=== PATIENT | female | born 1965 | race Caucasian/White ===

== ENCOUNTER 2019-03-18 16:40 | Inpatient (IN) ==
--- NOTE | 2019-03-18 17:31 | EKG Report ---
Test Performed on : 03/18/2019 5:01:02 PM Test Reason : TACHYCARDIA Blood Pressure : / mmHG Vent. Rate : 133 BPM Atrial Rate : 133 BPM P-R Int : 130 ms QRS Dur : 146 ms QT Int : 342 ms P-R-T Axes : 041 -03 114 degrees QTc Int : 509 ms Sinus tachycardia. Left bundle branch block Abnormal ECG When compared with ECG of 19-APR-2011 10:40, Vent. rate has increased BY 59 BPM Left bundle branch block is now present Unconfirmed Result
--- NOTE | 2019-03-18 17:42 | PROVIDER DOCUMENTATION ---
HPI-Musculoskeletal Pain/Inj - GENERAL Chief Complaint: Extremity Pain Stated Complaint: LOW SODIUM Time Seen by Provider: 03/18/19 17:16 Source: patient, family () - HX OF PRESENT ILLNESS-MUSKULOSKELTAL Nature of Presenting Problem: Patient with h/o generalized pain, hypoNA, reports b/l leg swelling and pain for several months now. She takes med for generalized body pain but brought her in today because he noticed she was confused when he came home today and this has happened in the past when she had hypoNA. She reports no other symptoms. ER EKG reveals sinus tarchycardia with left BBB. states she had been admitted in a different facility in the past Quality of Pain: reports: throbbing Severity in ED: mild, moderate Onset/Duration: other (months) Timing: still present Modifying Factors: improves with: nothing Any recent injury?: No Locality of Occurance: Home Review of Systems - Adult - REVIEW OF SYSTEMS - ADULT Constitutional: reports: no symptoms reported Eyes: reports: no symptoms reported Ears, Nose, Mouth & Throat: reports: no symptoms reported Cardiovascular: reports: no symptoms reported Respiratory: reports: no symptoms reported Gastrointestinal: reports: no symptoms reported Genitourinary: reports: no symptoms reported Musculoskeletal: reports: see HPI Integumentary: reports: no symptoms reported Neurological: reports: other (confused per ) Psychiatric: reports: no symptoms reported Endocrine: reports: no symptoms reported Hematologic/Lymphatic: reports: no symptoms reported Allergic/Immunologic: reports: no symptoms reported Past History - Adult - PAST MEDICAL HISTORY-ADULT Review of Records: reports: Nursing Assessment Review, Medications Reviewed, Social history reviewed & non-contributory. Major Childhood Illnesses: reports: denies history Cardiovascular: reports: denies history Respiratory: reports: denies history Gastrointestinal: reports: GERD, GI bleed Obstetrical/Gynecological: reports: denies history Genitourinary: reports: denies history Musculoskeletal: reports: denies history Neurological: reports: denies history Endocrine/Immune: reports: denies history Other Conditions: reports: denies history - IMMUNIZATION STATUS Childhood Immunizations: See Nurse Assessment Flu Vaccine: See Nurse Assessment - FAMILY HISTORY Family History: reviewed, not pertinent - SOCIAL HISTORY Smoking: denies Substance Use: none/never Alcohol Use Frequency: occasionally Living Situation: family Physical Exam-Injury Related - Physical Exam-Injury Related General Appearance: appears well, alert, no apparent distress Head, Ears, Nose, Mouth & Throat: normocephalic/atraumatic Neck: non-tender, full range of motion, supple Respiratory: chest non-tender, lungs clear, normal breath sounds Cardiovascular: tachycardia Abdominal Exam: non tender, soft Back Exam: no CVA tenderness Extremity: pedal edema (pitting edema b/l legs R > L with tenderness. no colour change, no warmth, no erythema), swelling Integumentary: normal color Neurologic: grossly normal Psych/Mental Status: oriented x 3 - Glascow Coma Score Best Eye Response (Robertson): (4) open spontaneously Best Verbal Response (Cindy): (5) oriented Best Motor Response (Cindy): (6) obeys commands Progress - PLAN OF CARE/RESULTS Progress/Plan/Lab Results: Vital Signs - 8 hr 03/18/19 16:58 03/18/19 17:58 03/18/19 18:01 Temperature 97.9 F Pulse Rate 131 H 132 H 131 H Respiratory Rate 18 14 18 Blood Pressure 155/92 154/92 137/99 O2 Sat by Pulse Oximetry 98 100 98 03/18/19 19:01 03/18/19 20:01 03/18/19 21:01 Temperature Pulse Rate 122 H 130 H 121 H Respiratory Rate 22 19 18 Blood Pressure 135/74 148/83 136/71 O2 Sat by Pulse Oximetry 97 97 97 Laboratory Results - last 24 hr 03/18/19 03/18/19 03/18/19 17:06 17:06 17:06 WBC 9.93 RBC 3.44 L Hgb 9.3 L Hct 30.3 L MCV 88.1 MCH 27.0 MCHC 30.7 L RDW Std Deviation 17.2 H Plt Count 426 H MPV 9.3 Immature Gran % (Auto) 0.0 Neut % (Auto) 71.0 Lymph % (Auto) 17.9 L [place] % (Auto) 10.6 H Eos % (Auto) 0.3 Baso % (Auto) 0.2 Immature Gran # (Auto) 0.00 Neut # (Auto) 7.05 H Lymph # (Auto) 1.78 [place] # (Auto) 1.05 H Eos # (Auto) 0.03 Baso # (Auto) 0.02 D-Dimer, Quantitative 0.79 H Sodium 135 L Potassium 3.5 Chloride 95 L Carbon Dioxide 24 L Anion Gap 16 BUN 8 Creatinine 0.9 Estimated GFR/1.73 m2 > 60 BUN/Creatinine Ratio 9 Glucose 114 H Calculated Osmolality 269 Calcium 9.0 Total Bilirubin 0.22 AST 90 H ALT 36 Alkaline Phosphatase 125 H Ammonia Troponin T Total Protein 6.9 Albumin 3.9 Globulin 3.0 Albumin/Globulin Ratio 1.3 Plasma Lactate Urine Source Urine Color Urine Turbidity Urine pH Ur Specific [place] Urine Protein Ur Glucose (Stick) Ur Ketones (Stick) Urine Blood Urine Nitrite Urine Bilirubin Urobilinogen Dipstick Urine Leukocytes Urine WBC (Auto) Urine RBC (Auto) U Epithel Cells (Auto) Urine Bacteria (Auto) Salicylates Urine Opiates Screen Ur Oxycodone Screen Ur Methadone, Qual Acetaminophen Ur Barbiturates Screen Ur Phencyclidine Scrn Ur Amphetamines Screen U Benzodiazepines Scrn Urine Cocaine Screen U Cannabinoids Screen Plasma/Serum Ethyl Alc 03/18/19 03/18/19 03/18/19 17:06 17:06 17:06 WBC RBC Hgb Hct MCV MCH MCHC RDW Std Deviation Plt Count MPV Immature Gran % (Auto) Neut % (Auto) Lymph % (Auto) [place] % (Auto) Eos % (Auto) Baso % (Auto) Immature Gran # (Auto) Neut # (Auto) Lymph # (Auto) [place] # (Auto) Eos # (Auto) Baso # (Auto) D-Dimer, Quantitative Sodium Potassium Chloride Carbon Dioxide Anion Gap BUN Creatinine Estimated GFR/1.73 m2 BUN/Creatinine Ratio Glucose Calculated Osmolality Calcium Total Bilirubin AST ALT Alkaline Phosphatase Ammonia Troponin T < 0.010 Total Protein Albumin Globulin Albumin/Globulin Ratio Plasma Lactate Urine Source Urine Color Urine Turbidity Urine pH Ur Specific [place] Urine Protein Ur Glucose (Stick) Ur Ketones (Stick) Urine Blood Urine Nitrite Urine Bilirubin Urobilinogen Dipstick Urine Leukocytes Urine WBC (Auto) Urine RBC (Auto) U Epithel Cells (Auto) Urine Bacteria (Auto) Salicylates < 3.00 L Urine Opiates Screen Ur Oxycodone Screen Ur Methadone, Qual Acetaminophen < 1.2 L Ur Barbiturates Screen Ur Phencyclidine Scrn Ur Amphetamines Screen U Benzodiazepines Scrn Urine Cocaine Screen U Cannabinoids Screen Plasma/Serum Ethyl Alc 03/18/19 03/18/19 03/18/19 18:22 18:22 19:16 WBC RBC Hgb Hct MCV MCH MCHC RDW Std Deviation Plt Count MPV Immature Gran % (Auto) Neut % (Auto) Lymph % (Auto) [place] % (Auto) Eos % (Auto) Baso % (Auto) Immature Gran # (Auto) Neut # (Auto) Lymph # (Auto) [place] # (Auto) Eos # (Auto) Baso # (Auto) D-Dimer, Quantitative Sodium Potassium Chloride Carbon Dioxide Anion Gap BUN Creatinine Estimated GFR/1.73 m2 BUN/Creatinine Ratio Glucose Calculated Osmolality Calcium Total Bilirubin AST ALT Alkaline Phosphatase Ammonia 18 Troponin T Total Protein Albumin Globulin Albumin/Globulin Ratio Plasma Lactate Urine Source CLEAN CATCH Urine Color YELLOW Urine Turbidity CLEAR Urine pH 6.0 Ur Specific [place] 1.028 Urine Protein 30 A Ur Glucose (Stick) NEGATIVE Ur Ketones (Stick) TRACE A Urine Blood NEGATIVE Urine Nitrite NEGATIVE Urine Bilirubin NEGATIVE Urobilinogen Dipstick NORMAL Urine Leukocytes NEGATIVE Urine WBC (Auto) <10 Urine RBC (Auto) <10 U Epithel Cells (Auto) <10 Urine Bacteria (Auto) NEGATIVE Salicylates Urine Opiates Screen NONE DETECTED Ur Oxycodone Screen NONE DETECTED Ur Methadone, Qual NONE DETECTED Acetaminophen Ur Barbiturates Screen NONE DETECTED Ur Phencyclidine Scrn NONE DETECTED Ur Amphetamines Screen NONE DETECTED U Benzodiazepines Scrn NONE DETECTED Urine Cocaine Screen NONE DETECTED U Cannabinoids Screen NONE DETECTED Plasma/Serum Ethyl Alc 03/18/19 21:31 WBC RBC Hgb Hct MCV MCH MCHC RDW Std Deviation Plt Count MPV Immature Gran % (Auto) Neut % (Auto) Lymph % (Auto) [place] % (Auto) Eos % (Auto) Baso % (Auto) Immature Gran # (Auto) Neut # (Auto) Lymph # (Auto) [place] # (Auto) Eos # (Auto) Baso # (Auto) D-Dimer, Quantitative Sodium Potassium Chloride Carbon Dioxide Anion Gap BUN Creatinine Estimated GFR/1.73 m2 BUN/Creatinine Ratio Glucose Calculated Osmolality Calcium Total Bilirubin AST ALT Alkaline Phosphatase Ammonia Troponin T Total Protein Albumin Globulin Albumin/Globulin Ratio Plasma Lactate 0.8 Urine Source Urine Color Urine Turbidity Urine pH Ur Specific [place] Urine Protein Ur Glucose (Stick) Ur Ketones (Stick) Urine Blood Urine Nitrite Urine Bilirubin Urobilinogen Dipstick Urine Leukocytes Urine WBC (Auto) Urine RBC (Auto) U Epithel Cells (Auto) Urine Bacteria (Auto) Salicylates Urine Opiates Screen Ur Oxycodone Screen Ur Methadone, Qual Acetaminophen Ur Barbiturates Screen Ur Phencyclidine Scrn Ur Amphetamines Screen U Benzodiazepines Scrn Urine Cocaine Screen U Cannabinoids Screen Plasma/Serum Ethyl Alc Orders Category Date Time Status Admit - [facility] Routine AdmDCTranf 03/19/19 00:07 Active Vital Signs Order Q 4-HR ASSESS Care 03/19/19 00:[address] HEAD W/O CONTRAST [CT] Stat Exams 03/18/19 19:00 Completed CTA [CT ANGIOGRM PULMONARY ARTERIES] [CT] Stat Exams 03/18/19 19:01 Completed ACETAMINOPHEN [TDM] Stat Lab 03/18/19 17:06 Completed ALCOHOL BLOOD Stat Lab 03/18/19 17:06 Completed AMMONIA [CHEM] Stat Lab 03/18/19 19:16 Completed CBC WITH ELECTRONIC DIFF [HEME] Stat Lab 03/18/19 17:06 Completed COMPREHENSIVE METABOLIC PANEL [CHEM] Stat Lab 03/18/19 17:06 Completed D-DIMER [COAG] Stat Lab 03/18/19 17:06 Completed LACTATE, PLASMA [CHEM] Stat Lab 03/18/19 21:31 Completed SALICYLATES [TDM] Stat Lab 03/18/19 17:06 Completed TROPONIN T Stat Lab 03/18/19 17:06 Completed UA [URINALYSIS] [URINALYSIS] Stat Lab 03/18/19 18:22 Completed URINE DRUG SCREEN Stat Lab 03/18/19 18:22 Completed 0.9% Sodium Chloride Inj [Ns] 500 ml Med 03/18/19 21:20 Discontinued IV Wide Open mls/hr Diltiazem [Cardizem] Med 03/18/19 21:20 Discontinued 10 mg IV NOW ONE Morphine Med 03/18/19 21:31 Discontinued 2 mg IV NOW ONE Ondansetron [Zofran] Med 03/18/19 21:30 Discontinued 4 mg IV NOW ONE Generalized Adult Illness >60 Stat Oth 03/18/19 17:00 Ordered EKG [EKG] Stat Ther 03/18/19 17:00 Draft Venous U/S Bilateral Legs Stat Ther 03/18/19 17:32 Completed Transfer/Admit Order [TRANSFER] Routine Transfer 03/19/19 00:06 Ordered Result Diagrams: 03/18/19 17:06 03/18/19 17:06 - REASSESSMENT Reassessment #1 Time Reassessed: 19:15 Status: worsening (Nurse informed me that patient is confused and has hallucination. Evaluated at bed side. confirmed nurse observation. Patie nt agrees that she is seeing her grand daughter though not present her. Awake , allert, answers questions appropiately, no extremity weakness. Discussed labs twith patient and . Has na 132, elevated LFT, positive D- Dimer. Will check tylenol, ASA levels as well as CT and evaluated for VTE) Reassessment #2 Time Reassessed: 09:20 Status: unchanged ( states that patient is in and out of her confuse states. patient is a bit restless. she states she wants to say one thing and sometimes end up saying something else. reports ongoing lower extremity pains on both knees and legs. preliminary USS report reveals no DVT per Yasmani. Patient still has tarchycardia. Will treat her pain with toradol and bolous her with NS 500cc and also cardizen) Reassessment #3 Time Reassessed: 23:00 Status: other (patient had 500mls of normal saline and received morphine for pain. Seen sleeping but slightly restless, mild improvement of her heart rate. Nurse went ahead and gave Cardizen, 5mg initially and repeated 5mg in about 5 mins. Discuused admission with ) - CT/MRI 1 CT Study: Thorax ( CT ANGIOGRM PULMONARY ARTERIES - 03/18/2019 INDICATION: b/l leg swelling, elevated d dimer TECHNIQUE: Axial CT images were obtained after administering intravenous contrast. Coronal MIP images were generated. COMPARISON: None FINDINGS: There is excessive patient motion artifact. No obvious pulmonary embolism. No adenopathy. There is mild cardiomegaly. Great vessels are normal. There are gastric bypass changes. There are cholecystectomy clips. The lungs and airways are clear. Bones are intact. IMPRESSION: Mild cardiomegaly. No visible acute disease. This exam was performed using automated exposure control, adjustment of mA or kV according to patient size, and/or use of iterative reconstruction technique Electronically signed by Hung Alcala 03/18/2019 9:38 PM [id number]/18/192137 Interpreting Physician: Hung Alcala MD Dictated Date/Time: 03/18/[id number]) 2 CT Study: Head ( CT HEAD W/O CONTRAST - 03/18/2019 INDICATION: confusion COMPARISON: None FINDINGS: There is moderately extensive, scattered cerebral white matter hypodensity compatible with chronic microvascular ischemia. This is largely in the subcortical and deep white matter. No intracranial mass or he morrhage. The skull is intact. The sinuses, mastoids, and middle ears are clear. IMPRESSION: No acute process. This exam was performed using automated exposure control, adjustment of mA or kV according to patient size, and/or use of iterative reconstruction technique Electronically signed by Hung Alcala 03/18/2019 9:25 PM) - CONSULTS/PCP/HOSPITALIST Notification #1 *Consult/PCP/Hospitalist*: [place] Time Discussed: 11:25 Consult Disposition: Admit (Accepted admission) Departure - Departure Date of Disposition Decision: 03/19/19 Time of Disposition Decision: 11:30 DIAGNOSIS: Confused but orients easily, Hallucination, Tachycardia, Leg edema Disposition: [facility] 02 Certified Medical Emergency: Emergent Condition: Fair Referrals and Follow-Ups: Luis F Nichole MD [Primary Care Provider] - - Critical Care Note This patient required my direct & personal management of CC.: No Attestation - Physician/ ROMERO Attestation Patient care was provided by Advanced Practice Provider:: No The physician spent face to face time with patient:: Yes Advanced Practice Provider documentation review:: Supervising physician onsite and consulted in the evaluation and care of this patient. The physician did have a face to face encounter with the patient.
[2019-03-18 17:48] LABS: BASO# 0.02 X1000 (0.0-0.2); BASO% 0.2 % (0.0-0.8); EOS# 0.03 X1000 (0.0-0.7); EOS% 0.3 % (0.0-10.0); HEMATOCRIT 30.3 % (37.0-47.0); HEMOGLOBIN 9.3 g/dL (12.0-16.0); LYMPH# 1.78 X1000 (1.2-3.4); LYMPH% 17.9 % (20.5-51.1); MCHC 30.7 g/dL (33-37); MCV 88.1 FL (81-99); MONO# 1.05 X1000 (0.11-0.59); MONO% 10.6 % (1.7-9.3); MPV 9.3 FL (7.4-10.4); NEUT# 7.05 X1000 (1.4-6.5); PLT 426 X1000 (130-400); RBC 3.44 XMIL (4.2-5.4); RDW 17.2 % (11.5-14.5); WBC 9.93 X1000 (4.8-10.8)
[2019-03-18 18:12] LABS: AGAP 16; ALB/GLOB RATIO 1.3; ALBUMIN 3.9 g/dL (3.5-5.0); ALKALINE PHOSPHATASE 125 U/L (32-104); BUN 8 mg/dL (8-22); CHLORIDE 95 mmol/L (98-107); COSMO 269; CREATININE 0.9 mg/dL (0.5-0.9); ESTIMATED GFR > 60; GLUCOSE 114 mg/dL (70-104); GOT 90 U/L (10-30); GPT 36 U/L (10-36); POTASSIUM 3.5 mmol/L (3.5-5.1); SODIUM 135 mmol/L (136-145); TCO2 24 mmol/L (25-35); TOTAL BILIRUBIN 0.22 mg/dL (0.20-1.00); TOTAL PROTEIN 6.9 g/dL (6.3-8.3)
[2019-03-18 18:35] LABS: URINE SOURCE CLEAN CATCH
[2019-03-18 18:41] LABS: BILIRUBIN URINE NEGATIVE (NEGATIVE); BLOOD URINE NEGATIVE (NEGATIVE); COLOR YELLOW; GLUCOSE URINE NEGATIVE (NEGATIVE); KETONE URINE TRACE mg/dL (NEGATIVE); LEUKOCYTES URINE NEGATIVE (NEGATIVE); NITRITE URINE NEGATIVE (NEGATIVE); PROTEIN URINE 30 mg/dL (NEGATIVE); SP GRAVITY URINE 1.028; TURBIDITY URINE CLEAR (CLEAR); UROBILINOGEN URINE NORMAL (NORMAL)
[2019-03-18 18:42] LABS: UR EPITHELIAL CELLS <10 /HPF (<10); URINE BACTERIA NEGATIVE /HPF; URINE RBC <10 /HPF (<10); URINE WBC <10 /HPF (<10)
[2019-03-18 19:07] LABS: UR AMPHETAMINES QUAL NONE DETECTED (NONE DETECT); UR BARBITUATES QUAL NONE DETECTED (NONE DETECT); UR BENZODIAZEPIN QUAL NONE DETECTED (NONE DETECT); UR CANNABINOIDS QUAL NONE DETECTED (NONE DETECT); UR COCAINE QUAL NONE DETECTED (NONE DETECT); UR METHADONE QUAL NONE DETECTED (NONE DETECT); UR OPIATES QUAL NONE DETECTED (NONE DETECT); UR OXYCODONE QUAL NONE DETECTED (NONE DETECT); UR PCP QUAL NONE DETECTED (NONE DETECT)
[2019-03-18 19:41] LABS: ACETAMINOPHEN < 1.2 ug/mL (10-30); SALICYLATES < 3.00 mg/dL (3-10)
[2019-03-18] MEDS ORDERED: NS 500 ML IV ONE (21:20)
[2019-03-18] MEDS ORDERED: CARDIZEM IV ONE (21:20)
--- NOTE | 2019-03-18 21:27 | Diag Imaging Result Doc PS360 ---
CT HEAD W/O CONTRAST - 03/18/2019 INDICATION: confusion COMPARISON: None FINDINGS: There is moderately extensive, scattered cerebral white matter hypodensity compatible with chronic microvascular ischemia. This is largely in the subcortical and deep white matter. No intracranial mass or hemorrhage. The skull is intact. The sinuses, mastoids, and middle ears are clear. IMPRESSION: No acute process. This exam was performed using automated exposure control, adjustment of mA or kV according to patient size, and/or use of iterative reconstruction technique Electronically signed by Hung Alcala 03/18/2019 9:25 PM
[2019-03-18] MEDS ORDERED: ZOFRAN IV ONE (21:30)
[2019-03-18] MEDS ORDERED: MORPHINE IV ONE (21:31)
--- NOTE | 2019-03-18 21:40 | Diag Imaging Result Doc PS360 ---
CT ANGIOGRM PULMONARY ARTERIES - 03/18/2019 INDICATION: b/l leg swelling, elevated d dimer TECHNIQUE: Axial CT images were obtained after administering intravenous contrast. Coronal MIP images were generated. COMPARISON: None FINDINGS: There is excessive patient motion artifact. No obvious pulmonary embolism. No adenopathy. There is mild cardiomegaly. Great vessels are normal. There are gastric bypass changes. There are cholecystectomy clips. The lungs and airways are clear. Bones are intact. IMPRESSION: Mild cardiomegaly. No visible acute disease. This exam was performed using automated exposure control, adjustment of mA or kV according to patient size, and/or use of iterative reconstruction technique Electronically signed by Hung Alcala 03/18/2019 9:38 PM
[2019-03-19 01:56] LABS: CK INDEX 1.3 (0.0-2.5); CK-MB 19.87 ng/mL (0.0-5.0)
[2019-03-19] MEDS ORDERED: NS 1,000 ML IV SCH (02:10)
[2019-03-19] MEDS: PRILOSEC PO SCH (06:20)
--- NOTE | 2019-03-19 08:22 | HISTORY AND PHYSICAL ---
CHIEF COMPLAINT: Pain involving both lower extremities for about 1 month. HISTORY OF PRESENTING ILLNESS: Ms. Rizo is a 51-year-old female, and she does have a history of low back pain and gastroesophageal reflux disease. She presents to the hospital because of pain involving both lower extremities, and she says this has been going on for about 1 month and has progressively gotten worse. She does have a history of back pain for which she receives epidural steroid injections. She also describes having numbness as well as tingling in her lower extremity. She indicates that the left lower extremity is more symptomatic compared to the right. The patient was seen and evaluated in the ER. While being evaluated in the ER, she was noted to be tachycardic with heart rate as high as 133 and also EKG finding of left bundle branch block. ER records indicate that the patient's had brought her to the hospital because he noticed that she was confused. However, on speaking to the patient she denies such. She did have a CAT scan of the head done at time of presentation, and it did not reveal any acute process. The patient has now been admitted to the floor for further management. PAST MEDICAL HISTORY: Chronic back pain, hypertension, gastroesophageal reflux disease. SOCIAL HISTORY: No cigarette smoking or drug use. Drinks alcohol occasionally. ALLERGIES: No known drug allergies. MEDICATIONS: Include the following: [*] FAMILY HISTORY: Positive for hypertension. PAST SURGICAL HISTORY: Cholecystectomy, appendectomy, hysterectomy. REVIEW OF SYSTEMS: Constitutional: Fever. TICKET COLLECTOR: Headaches. Eyes: Blurry vision. ENT: Has sinus problems. Cardiovascular: No chest pain. Respiratory: Has cough. GI: Has vomiting and diarrhea, along with abdominal pain. : No dysuria. Dermatology: No skin lesions. Hematology: Bleeds easily. Psychiatric: Has anxiety with depression. Endocrinology: No thyroid disease or diabetes. Allergy/immunology: She does have symptoms suggestive of allergic rhinitis. EXAMINATION: Vital Signs: Vital signs are as follows: Temperature 98.3 degrees, pulse 109 respiratory rate 20, blood pressure is 139/79, oxygen saturation is 94%. HEENT: She is atraumatic, normocephalic. She is anicteric. Extraocular movements intact. No oral lesions noted. Neck: No lymphadenopathy or thyromegaly. Cardiovascular system: S1, S2. Respiratory system: Has evidence of good air entry bilaterally. Abdomen: Soft, nontender. No masses felt. Extremities: No evidence of edema. Central nervous system: No obvious focal deficit noted. LABS: WBC 9.93, hematocrit is 30.3 with a platelet count of 426. D-dimer is 0.79. Sodium 135, potassium 3.5, chloride 95, bicarbonate is 24. BUN is 8, creatinine 0.9, glucose is 114. AST is 90, ALT is 36. Ammonia level 18. CK level is 1529. UA shows trace ketones. Urine drug screen unremarkable. X-RAYS: CT scan of the brain unremarkable. EKG shows evidence of left bundle branch block. ASSESSMENT AND PLAN: 1. Probable lumbar radiculopathy. We will obtain a magnetic resonance imaging of her lumbar spine, then optimize pain control. 2. Altered mental status. Etiology not clear. We will obtain a magnetic resonance imaging of the brain without contrast, electroencephalogram and follow up on thyroid function test. 3. Arrhythmia. Electrocardiogram shows a heart rate of 133 with left bundle branch block. Place patient on telemetry. Follow up on serial cardiac enzymes. Check two-dimensional echocardiogram of the heart. Consult with Cardiology. 4. Rhabdomyolysis. Maintain patient on intravenous fluids. Follow up on CK levels. 5. Gastroesophageal reflux disease. Continue proton pump inhibitor. 6. Anemia. Check iron studies along with B 12 and folate level. Stool for occult blood. 7. Elevated D-dimer. Computed tomography angiography of the chest, as well as venous Doppler study. No evidence of thrombosis. 8. Abnormal liver function tests. Check hepatitis panel, as well as abdominal ultrasound. 9. Deep vein thrombosis prophylaxis. Lovenox. cc: Jorge Luis Duran MD
--- NOTE | 2019-03-19 09:45 | Diag Imaging Result Doc PS360 ---
MRI BRAIN W/O CONTRAST - 03/19/2019 INDICATION: ams COMPARISON: None FINDINGS: There is no area of restricted diffusion. The ventricles and sulci are normal in size and contour. There is moderate deep cerebral white matter hyperintensity on T2 and FLAIR images compatible with chronic microvascular ischemia. No intracranial mass or hemorrhage. Midline structures including optic chiasm and pituitary are normal. IMPRESSION: Mild chronic microvascular disease. No acute disease. Electronically signed by Hung Alcala 03/19/2019 9:42 AM
[2019-03-19] MEDS: NS 1,000 ML IV SCH ×2 (09:46→16:57)
[2019-03-19] MEDS: NEURONTIN PO SCH ×2 (09:46→13:11)
--- NOTE | 2019-03-19 09:46 | Diag Imaging Result Doc PS360 ---
MRI LUMBAR SPINE W/O CONTRAST - 03/19/2019 INDICATION: r/o lumber disc disease COMPARISON: None FINDINGS: There is extensive patient motion artifact. Alignment is anatomic. Bone marrow signal is normal. No fracture or subluxation. There are mild disc bulges. No central canal stenosis. IMPRESSION: Mild disc bulges but no acute disease. Electronically signed by Hung Alcala 03/19/2019 9:43 AM
--- NOTE | 2019-03-19 10:11 | Diag Imaging Result Doc PS360 ---
US ABDOMEN-COMPLETE - 03/19/2019 INDICATION: abnormal Lfts COMPARISON: CT from 09/15/2011 FINDINGS: The gallbladder is surgically absent. The liver, pancreas, spleen, and both kidneys are normal. Common bile duct measures 5 mm. Aorta, IVC, and main portal vein are patent. Spleen size is 9.4 cm maximally. IMPRESSION: Negative exam. Electronically signed by Hung Alcala 03/19/2019 10:09 AM
--- NOTE | 2019-03-19 11:44 | EKG Report ---
Test Performed on : 03/19/2019 11:21:41 AM Test Reason : tachycardia Blood Pressure : / mmHG Vent. Rate : 101 BPM Atrial Rate : 101 BPM P-R Int : 158 ms QRS Dur : 156 ms QT Int : 402 ms P-R-T Axes : 028 -11 121 degrees QTc Int : 521 ms Sinus tachycardia. Left bundle branch block Abnormal ECG When compared with ECG of 18-MAR-2019 17:01, (Unconfirmed) No significant change was found Unconfirmed Result
[2019-03-19 13:00] LABS: CK INDEX 1.3 (0.0-2.5); CK-MB 14.41 ng/mL (0.0-5.0)
[2019-03-19] MEDS ORDERED: ULTRAM PO PRN (13:16)
--- NOTE | 2019-03-19 14:15 | PROGRESS NOTE ---
DATE: 03/19/2019 SUBJECTIVE: The patient is lying comfortably in bed. As per the patient, she has lower extremity pain and back pain. She rates her lower extremity pain/knee pain around 6/10, but she believes when she walks it is around 9/10. She has multiple bottles at the bedside, medications that she takes at home. Some of then are repeated. I checked 1 of the bottles and she has 3 different pills inside of the bottle with different sizes and colors. I show her this and she does not know why she has different pills in that bottle. So I told the patient that probably she has been taking medication that she does not even know what kind of medications they are, and that is why she came into the emergency department with mental status changes. Actually she does not know why she came into the hospital. She believes it was because of pain, which is the main issue for her. As per the family member, I believe the who is at the bedside, this is not the first time that ever happened. Apparently this patient was hospitalized before in another state for confusion and, at that time, her sodium level was really low. She used to see a fruit picker machine operator, Dr. Espinosa, that also was like her primary doctor, but now she has another one. The main problem is that this patient is taking znwc-kzx-behjxyb medication for pain. She can go to the pharmacy and even to the gas station to get any medication for pain. As per the , even at midnight she goes out to buy some medications. She has home medications that are over the counter at the bedside, including some creams. As per the patient she has been diagnosed with fibromyalgia, and her Cymbalta has been helping her, but she always takes more medications like naproxen, acetaminophen and ekqi-yht-xnquipe medication that she does not remember on a daily basis, probably multiple times a day. I talked to the patient. I talked to the at the bedside, and I told him that probably all these mental status changes are related to polypharmacy and likely is because this patient has been taking medication that she does not even know. Like I said, 1 of the bottles has 3 different types of medications and she does not know why. OBJECTIVE: Vital Signs: Temperature 97.9 degrees, pulse 110, respiratory rate 19, blood pressure 102/60, oxygen saturation 99 on room air. HEENT: Head normocephalic, no trauma. PERRLA. Neck: Supple. No JVD. No masses. Central trachea. Chest: Clear to auscultation. No wheezing. No rales. Abdomen: Soft, nontender, nondistended. No hepatosplenomegaly. Extremities: Trace edema. No clubbing, no cyanosis. She does have some a knee pain, mostly with movement. Neurological examination: The patient is alert. She is awake. She is able to recognize family members at the bedside. Her main concern is pain. She does not remember why she came to the emergency department and she does not know why she has 3 different type of pills inside 1 medication bottle. IMAGING: EKG shows left bundle branch block and tachycardia. We did multiple images, including brain MRI which is negative. Lumbar spine MRI that showed some mild disk bulges, but no acute disease. Also we did head CT scan, pulmonary arteriogram, abdominal ultrasound, all of them without any acute process. LABORATORY: Lab work from yesterday showed a WBC of 9.9, hemoglobin 9.3, hematocrit 30.3, platelet count is 426. D-dimer 0.79. Sodium 135, potassium 3.5, chloride 95, bicarbonate 24. BUN 8, creatinine 0.9, glucose 114, calcium 9., AST 90, ALT 36, alkaline phosphatase 125. CK level today 159, but now has decreased a little bit to 1142. Troponins have been negative x3. Free T4 1.17. Plasma lactate 0.8. Negative urine toxicology and negative alcohol. Negative urine exam; just a little bit of protein. ASSESSMENT AND PLAN: 1. Altered mental status. As per the she is not quite yet at baseline. She is not confused, but she really answered my questions slow. We will continue with the same management. I will continue with intravenous fluids. Magnetic resonance imaging of the head without evidence of acute abnormality. 2. Back pain. Magnetic resonance imaging showed some disk bulges, but no acute disease. We will continue with medication for pain. 3. As per the patient, she has a history of fibromyalgia. For this pathology, she takes Cymbalta and apparently she feels good with that one. I will continue that tomorrow. 4. History of hypertension. Blood pressure seems to be at this moment on the low side, but it has been stable before. 5. Rhabdomyolysis. Continue with intravenous fluids. Follow up creatinine kinase level. This is getting a little bit better. 6. Gastroesophageal reflux disease. Continue with proton pump inhibitor on a daily basis. 7. Anemia. We ask for the anemia workup. We will monitor. 8. Elevated D-dimer. We have requested a computed tomography angiogram that did not show any acute abnormality. Also we requested a venous Doppler ultrasound of the legs, and this has been completed pending report. 9. Elevated liver function tests. We are checking a hepatitis panel. Abdominal ultrasound did not show any acute abnormality; that could be related to dehydration and/or medications as well. We will monitor this closely. 10. Deep vein thrombosis prophylaxis with Lovenox. 11. Polypharmacy. This patient basically is not only taking the medications that her primary doctor prescribes. Also, she takes multiple medications which are over the counter that she can get everywhere, including a gas station, pharmacy, etcetera. I had a really large conversation with this patient about this problem, and also the was at the bedside, and they seemed to understand. cc: Jeromy Chow MD
--- NOTE | 2019-03-19 14:58 | CONSULTATION ---
DATE OF CONSULTATION: 03/19/2019 SUBJECTIVE: Ms. Rizo has had some recent odd behavior and question of mental change. History from the patient, attentive at the bedside and review of hospital record is that she has had apparent mostly visual hallucinations intermittently. reports he found her Friday night wandering in the house talking as if she were having conversation when no one else was present. This has happened before. He drives a truck and left home Friday. He returned yesterday and found her with slurred speech and possibly having some delusions about altercation between family members that did not occur. There is report that she commented on "a bug on the table" when nothing was present. In the emergency room, she reported seeing "bird seed on the floor" when nothing was on the floor. She told me she is sometimes aware of hallucinations and generally sees people that she recognizes, acquaintances, not strangers. She believes this has not been threatening or frightening to her. She believes that she has a sense that she knows what these people are saying to her, but she is not certain she actually hears them. She does not give history of alisa auditory hallucination. She has a long history of not taking medications as prescribed. brought in a sack of home medicines and there are several duplications, prescriptions that have not been completed, multiple different tablets in the same pill bottle. I reviewed these briefly. She has had ondansetron but does not appear to have misused that. She started duloxetine a month ago and does not appear to have misused that. She has naltrexone with report that she took a few doses several weeks ago but not recently. She reports she has hydrocodone at home and takes that regularly, at least 1 a day, 2 or 3 some days, but urine drug screen was negative for opiates this admission. When I told her that, she told me she had not taken hydrocodone in the last few days, but that she had not run out early. did not find hydrocodone among her pill bottles at home. She has used ethanol in the past but reports no significant ethanol use in recent months. believes that is correct. She denies illicit drug use, illegal drug use, cannabis use. She reports worse than usual hallucinations when she was in [place] several months ago. She believes this was eventually attributed to hyponatremia with sodium reported 113. I do not have that documented. She and do not believe there was a specific explanation for the low sodium. Sodium was 135 this admission. There is not history of alisa seizure, unconsciousness, collapse, altered awareness. She has not had much headache. There has never been focal neurologic feature. Workup here includes noncontrast CT and then noncontrast brain MRI, both showing typical age- related micro-ischemic change but nothing focal or acute, no bleeding, no mass. Lumbar MRI shows minor disk bulging and degenerative changes. Lab shows anemia. Sodium 135 as above. Glucose 114. AST 90. Alkaline phosphatase 125. CK 1529. Urine drug screen was all negative. There is reported past history of hypertension, chronic back pain, leg pain. She was tachycardic in the emergency room with heart rate initially 130s, later 100s to 110s. Systolic blood pressure was initially 150s, later 100s to 130s. She has been afebrile. PHYSICAL EXAMINATION: On exam now, she is awake, alert, attentive. She seems appropriate. I did not witness any alisa hallucinatory behavior. Speech is dysarthric, mostly lingual features. There was no language deficit on brief bedside testing. Recent and remote memory are good. She is completely oriented. She discussed recent news with accurate detail. Head and neck are unremarkable. There is no meningismus. Visual galo are full, tested by confrontational finger counting. Extraocular movements are full. Facial motility is symmetric. Tongue is midline. She can hear. Shoulder shrug is equal. Strength is normal in the arms and legs. She did well on etjwak-rn-apgl testing bilaterally. I did not test her gait. IMPRESSION: Reported visual hallucinations, possible delusions and paranoia, uncertain auditory component. She might have a primary psychiatric mental illness or might have a medication related encephalopathy. First, I think we should give her some time and see what her mental status is like after holding medications to a minimum. Eventually, she might be a candidate for Psychiatry evaluation and consideration for antipsychotic medicine. I encouraged her to try to take whatever medicines are prescribed correctly and only as directed. There might be some concern for a drug withdrawal syndrome, but the only thing I find that she has had access to is opiate medicine and we would not typically see this prominent visual hallucination solely with opiate withdrawal. She did not report other typical features of opiate withdrawal, but she did present with tachycardia. Negative imaging is reassuring. I do not think we need any further workup now. Eventually, we might consider EEG. Thanks for asking Neurology to see Ms. Rizo. cc: MD DONNA Noonan III
[2019-03-19 15:21] LABS: AGAP 11; ALBUMIN 2.8 g/dL (3.5-5.0); ALKALINE PHOSPHATASE 103 U/L (32-104); BUN 4 mg/dL (8-22); CALCIUM 8.2 mg/dL (8.8-10.2); CHLORIDE 102 mmol/L (98-107); COSMO 275; CREATININE 0.7 mg/dL (0.5-0.9); ESTIMATED GFR > 60; GLUCOSE 143 mg/dL (70-104); GOT 61 U/L (10-30); GPT 30 U/L (10-36); POTASSIUM 2.9 mmol/L (3.5-5.1); SODIUM 138 mmol/L (136-145); TCO2 25 mmol/L (25-35); TOTAL BILIRUBIN 0.17 mg/dL (0.20-1.00); TOTAL PROTEIN 5.6 g/dL (6.3-8.3)
[2019-03-19] MEDS ORDERED: KLOR-CON PO ONE (16:17)
[2019-03-19] MEDS: TORADOL IV PRN ×2 (16:54→22:29)
--- NOTE | 2019-03-19 17:42 | CONSULTATION ---
DATE OF CONSULTATION: 03/19/2019 IMPRESSION: 1. Sinus tachycardia probably related to acute noncardiac illness. 2. Left bundle branch block. By history this is probably chronic. The patient has no history of cardiac symptomatology. 3. Elevated CPK with low CPK/MB suggesting skeletal muscle injury. Consider rhabdomyolysis or myositis. 4. Altered mental status and confusion, etiology not clear. 5. Reported history of chronic muscle pain. RECOMMENDATIONS: 1. Followup echocardiography. 2. Agree with intravenous hydration. 3. Suggest obtaining markers of inflammatory disease. Recommend checking sedimentation rate, REESE, CRP, and rheumatoid factor. 4. Agree with neurology consult. 5. Consider merits of Rheumatology consultation and further rheumatologic evaluation. HISTORY: This 53-year-old white female who reports a past history of abnormal ECG who also has history of chronic muscle aches, hypertension and gastroesophageal reflux disease was admitted with altered mental status. She is also had aches in the lower extremities which has been going on for more than a month and has gotten worse of late. She is treated for chronic back pain and has received epidural steroid injections. Also on chronic Lortab/[place] for chronic pain. She developed confusion. For this reason, she was brought to the hospital. She is noted to have sinus tachycardia and abnormal ECG with left bundle branch block. It is because of the latter that Cardiology was consulted. She is somewhat confused and does not give a very clear story about why she came to the hospital. She does recall being told she had an abnormal ECG in the past. There has been no chest pain nor orthopnea. PAST MEDICAL HISTORY: 1. Hypertension. 2. Chronic muscle pain. 3. Gastroesophageal reflux disease. 4. Chronic back disorder. PAST SURGICAL HISTORY: Includes cholecystectomy, appendectomy and hysterectomy. MEDICATIONS PRIOR TO ADMISSION: As listed. ALLERGIES: She has no known drug allergies. SOCIAL HISTORY: She does not smoke. She drinks occasional alcoholic beverage. FAMILY HISTORY: Is negative for premature coronary disease. REVIEW OF SYSTEMS: Pulmonary: Negative. Gastrointestinal: Negative. Constitutional: Negative. Remainder review of systems negative/noncontributory beyond history present illness with 14 total systems reviewed. PHYSICAL EXAMINATION: General: This is a adult female in no distress who is somewhat drowsy but easily aroused. She seems to have some confusion. OBJECTIVE: Vital Signs: Blood pressure 102/60, heart rate 110, oxygen saturation 99% on room air. HEENT: Extraocular movements intact. Mucous membranes moist. Neck: Supple without jugular venous distention. No carotid bruits. Chest: Clear to auscultation. Cardiac: Reveals a regular rate and rhythm without appreciable murmur or gallop. Abdomen: Soft. Bowel sounds are normal. Extremities: Without edema. DATA: Twelve lead EKG demonstrates sinus tachycardia and left bundle branch block. LABORATORY DATA: Includes white blood cell count 9.93, hematocrit 30.3, hemoglobin 9.3, platelet count 426,000. Sodium 135, potassium 3.5, chloride 95, carbon dioxide 24, BUN 8, creatinine 0.9, glucose 114. AST 90, CPK 1142, CPK/MB 14.41, CPK/MB index 1.3, troponin T less than 0.01, followup troponin T less than 0.01 and less than 0.01. Free T4 1.17. cc: Crow Parker MD
[2019-03-19 19:59] LABS: CK INDEX 0.7 (0.0-2.5); CK-MB 6.04 ng/mL (0.0-5.0)
--- NOTE | 2019-03-19 20:14 | ECHO REPORT ---
ORDER DATE: 03/19/2019 INDICATION: Abnormal EKG, swelling. M-MODE MEASUREMENTS: Left ventricle end diastole: 5.3. Left ventricle end systole: 4.1. Posterior wall: 1.0. Interventricular septum: 1.0. Left atrium: 3.8. Aortic diameter: 3.5. SUMMARY OF 2-DIMENSIONAL IMAGIN. The left ventricular chamber is dilated. Left ventricular systolic function appears to be preserved. Ejection fraction is somewhere in the range of 55% to 60%. There is atypical contractility of the interventricular septum; however, the global function is normal. 2. The right ventricle appears to be normal. 3. The aortic valve has 3 cusps. They open normally. Color flow mapping unremarkable. 4. The mitral valve shows a mild degree of regurgitation. Color flow mapping unremarkable. 5. The tricuspid valve shows a mild degree of regurgitation. The inferior vena cava is at the upper limits of normal. Pulmonary pressure is estimated at 36 mmHg. 6. The pulmonic valve is normal. Color flow mapping unremarkable. 7. The mitral valve shows some thickening of the annulus. 8. Pulsed wave Doppler of mitral inflow shows a fusion of the E and A waves. 9. Tissue Doppler of septal and lateral mitral annulus is difficult to sort out because of the E' and A' waves. The patient probably has some impaired left ventricular relaxation. 10.The atria did not appear to be particularly dilated. 11.The patient is not in a qcy-lhykgeu-wacopa state. 12.There is no pericardial effusion, no mass, and no thrombus. SUMMARY: This study shows: 1. Enlarged left ventricle with preserved systolic function. Ejection fraction 55% to 60% with atypical contractility of the septum. 2. Mildly to moderately enlarged left atrium. 3. No significant valvular abnormality. 4. Pulmonary pressure estimated at 36 mmHg. 5. No aortic stenosis. 6. Diastolic function cannot be properly evaluated. Clinical correlation recommended. cc: MD Jorge Luis Chang MD
[2019-03-20] MEDS: NS 1,000 ML IV SCH ×4 (01:02→22:44)
[2019-03-20] MEDS: PRILOSEC PO SCH ×2 (05:40→06:02)
[2019-03-20] MEDS: TORADOL IV PRN ×3 (05:40→19:47)
[2019-03-20 08:01] LABS: BASO# 0.01 X1000 (0.0-0.2); BASO% 0.2 % (0.0-0.8); EOS# 0.38 X1000 (0.0-0.7); EOS% 7.5 % (0.0-10.0); HEMATOCRIT 26.3 % (37.0-47.0); HEMOGLOBIN 7.8 g/dL (12.0-16.0); LYMPH# 1.44 X1000 (1.2-3.4); LYMPH% 28.5 % (20.5-51.1); MCH 26.8 PG (27-31); MCHC 29.7 g/dL (33-37); MCV 90.4 FL (81-99); MONO# 0.56 X1000 (0.11-0.59); MONO% 11.1 % (1.7-9.3); NEUT# 2.67 X1000 (1.4-6.5); NEUT% 52.7 % (42.2-75.2); PLT 326 X1000 (130-400); RBC 2.91 XMIL (4.2-5.4); RDW 17.9 % (11.5-14.5); WBC 5.06 X1000 (4.8-10.8)
[2019-03-20 08:14] LABS: HEMOGLOBIN A1C 5.3 % (4.8-6.0)
[2019-03-20 08:26] LABS: MAGNESIUM 1.8 mg/dL (1.5-2.7); PHOSPHORUS 2.5 mg/dL (2.7-4.5)
[2019-03-20 08:31] LABS: AGAP 14; ALB/GLOB RATIO 1.1; ALBUMIN 3.1 g/dL (3.5-5.0); ALKALINE PHOSPHATASE 101 U/L (32-104); BUN 6 mg/dL (8-22); CALCIUM 7.3 mg/dL (8.8-10.2); CHLORIDE 102 mmol/L (98-107); CK PROFILE 675 U/L (24-173); COSMO 277; CREATININE 0.7 mg/dL (0.5-0.9); ESTIMATED GFR > 60; GLUCOSE 106 mg/dL (70-104); GOT 54 U/L (10-30); GPT 30 U/L (10-36); IRON SATURATION 5 %; POTASSIUM 3.2 mmol/L (3.5-5.1); SODIUM 140 mmol/L (136-145); TCO2 24 mmol/L (25-35); TIBC 338 ug/dL; TOTAL BILIRUBIN < 0.15 mg/dL (0.20-1.00); TOTAL IRON 17 ug/dL (49-151); TOTAL PROTEIN 5.8 g/dL (6.3-8.3); UNBOUND IRON 321 ug/dL (112-346)
[2019-03-20] MEDS ORDERED: POTASSIUM PHOSPHATE 15 MMOL in NS 250 ML IV ONE (08:37)
[2019-03-20 08:46] LABS: CK INDEX 1.2 (0.0-2.5); CK-MB 7.86 ng/mL (0.0-5.0); FERRITIN 13 ng/mL (13-150); TSH 2.49 uIUmL (0.27-4.20)
[2019-03-20] MEDS: CYMBALTA PO SCH (09:51)
[2019-03-20] MEDS: LOVENOX SUBQ SCH (09:51)
[2019-03-20] MEDS: ICAR-C PO SCH ×3 (09:56→21:22)
[2019-03-20] MEDS: CENTRUM SILVER PO SCH (09:56)
[2019-03-20] MEDS: ULTRAM PO PRN ×2 (10:24→19:47)
--- NOTE | 2019-03-20 12:41 | PROGRESS NOTE ---
DATE: 03/20/2019 SUBJECTIVE: The patient seems to be doing much better today. She is more awake, she is oriented x3. She does not have focal deficits but generalized pain mostly at the level of the lower extremities and back, which is chronic. Laboratory looks better except that the hemoglobin dropped from 9.3 to 7.8. She does have iron deficiency anemia. Folic acid and B12 are okay. CK level trending down, upon admission was 1500 and now 675. Kidney function is normal, but she does have some phosphorus and potassium deficiency, but I will replace it. OBJECTIVE: Vital Signs: Temperature 98.4 degrees, pulse 106, respiratory rate 20, blood pressure 132/86, oxygen saturation 100% on room air. HEENT: Head normocephalic, no trauma. PERRLA. Neck: Supple. No JVD. No masses. Central trachea. Chest: Clear to auscultation. No wheezing. No rales. Abdomen: Soft, nontender, nondistended. No hepatosplenomegaly. Extremities: No edema, no clubbing, no cyanosis. Some pain at the level of the knees with palpation and mobilization, she looks much better compared with yesterday. Neurological: The patient is alert, she is oriented x3. No focal neurological deficits but some weakness which is generalized. LABORATORY DATA: WBC 5.0, hemoglobin 7.8, hematocrit 26.3, platelets 326,000. Sodium 140, potassium 3.2, chloride 102, bicarbonate 24, BUN 6, creatinine 0.7, glucose 106, calcium 7.3, phosphorus 2.5. Iron 17 with a total iron binding capacity of 338. ASSESSMENT AND PLAN: 1. Altered mental status, likely due to polypharmacy. Not only this patient is taking prescribed medications but also she is taking bwfh-jga-qmlsory medication. She seems to be much better today. Since she is still complaining of pain, I will add Ultram to her medications. It looks like she took these medications before, no history of seizures. 2. Back pain. MRI shows some disk bulges but no acute disease. We will continue with pain medication. 3. History of hypertension. Blood pressure seems to be stable. Continue to monitor. 4. Rhabdomyolysis. CK level trending down. Continue with the same management. No kidney injury. 5. Gastroesophageal reflux disease. Continue with PPIs. 6. Iron deficiency anemia. I will replace the iron. I will put her also on multivitamins. 7. Elevated D-dimer. CT angiography did not show any acute abnormality. We requested a leg ultrasound to rule out DVT, pending results, but I do not think this patient has an acute problem. 8. Elevated liver function tests, trending down. Continue with same management. Abdominal ultrasound did not show any acute process. 9. Deep vein thrombosis prophylaxis with Lovenox. 10. Polypharmacy. Like I mentioned before, this patient has been taking a lot of medications, not only prescribed, but over the counter, and I do believe she takes more over the counter than prescribed, she came in confused and she does not remember why she came to the hospital. On the other hand, I check one of the bottles and she has 3 different pills in the same place, but she does not know what kind of medications are those. 11. As per the patient, she has history of fibromyalgia, She takes Cymbalta, which I will continue. cc: Jeromy Chow MD
[2019-03-20] MEDS: ALDACTONE PO SCH (12:45)
[2019-03-20] MEDS: LOPRESSOR PO SCH ×3 (12:45→21:22)
--- NOTE | 2019-03-20 13:08 | CARDIOLOGY PROGRESS NOTE ---
DATE: 03/20/2019 CHIEF COMPLAINT: Anxiety, nervousness, palpitations. Generalized pain and tachycardia was the reason for the consultation. SUBJECTIVE: Mrs. Contreras is generally feeling better. She denies having any chest pain at this time or palpitations, however, she does have multiple somatic pains. OBJECTIVE: Vital signs: Blood pressure 132/86, temperature 98.4, pulse 106, respirations 20. General: She is awake, alert, no distress. HEENT: Unremarkable. Chest: Sounds clear to auscultation and percussion. Heart: Sounds regular and rhythmic. I do hear a gallop rhythm. Abdomen: Nontender. Extremities: Show no edema. Neurologic exam: Follows commands, move all 4 extremities. IMPRESSION: 1. Patient who has sinus tachycardia with a left bundle branch block. Abnormal electrocardiogram. 2. Multiple somatic pains with elevation of creatine phosphokinases. Reason for that is unclear. 3. Reported history of hypertension. 4. History of prior admission to hospital with hyponatremia. 5. Altered mental status. RECOMMENDATIONS: At this time, we have done an echocardiogram yesterday, shows preserved ejection fraction although the chamber is enlarged. We might consider doing a stress test on her at some point. Because of the tachycardia, we might suggest a little bit of beta-suzanne to control the tachycardia. Of note, her CT of the chest shows calcification of the mid LAD. Further advice will be forthcoming. cc: Gio Campbell MD
[2019-03-20 13:32] LABS: UR AMPHETAMINES QUAL NONE DETECTED (NONE DETECT); UR BARBITUATES QUAL NONE DETECTED (NONE DETECT); UR BENZODIAZEPIN QUAL NONE DETECTED (NONE DETECT); UR CANNABINOIDS QUAL NONE DETECTED (NONE DETECT); UR COCAINE QUAL NONE DETECTED (NONE DETECT); UR METHADONE QUAL NONE DETECTED (NONE DETECT); UR OPIATES QUAL NONE DETECTED (NONE DETECT); UR OXYCODONE QUAL NONE DETECTED (NONE DETECT); UR PCP QUAL NONE DETECTED (NONE DETECT)
[2019-03-20] MEDS ORDERED: AMBIEN PO PRN (16:31)
[2019-03-21] MEDS: TORADOL IV PRN ×2 (01:18→08:44)
[2019-03-21] MEDS: ULTRAM PO PRN ×2 (01:18→08:44)
[2019-03-21] MEDS: PRILOSEC PO SCH (06:01)
[2019-03-21 07:16] VITALS: BP 147/93
[2019-03-21 08:07] LABS: BASO# 0.02 X1000 (0.0-0.2); BASO% 0.3 % (0.0-0.8); EOS# 0.42 X1000 (0.0-0.7); EOS% 5.6 % (0.0-10.0); HEMATOCRIT 26.2 % (37.0-47.0); HEMOGLOBIN 7.7 g/dL (12.0-16.0); LYMPH# 1.38 X1000 (1.2-3.4); LYMPH% 18.5 % (20.5-51.1); MCH 27.1 PG (27-31); MCHC 29.4 g/dL (33-37); MCV 92.3 FL (81-99); MONO# 0.57 X1000 (0.11-0.59); MONO% 7.7 % (1.7-9.3); NEUT# 5.05 X1000 (1.4-6.5); NEUT% 67.9 % (42.2-75.2); PLT 354 X1000 (130-400); RBC 2.84 XMIL (4.2-5.4); RDW 18.5 % (11.5-14.5); WBC 7.44 X1000 (4.8-10.8)
[2019-03-21 08:24] LABS: AGAP 10; ALKALINE PHOSPHATASE 103 U/L (32-104); BUN 4 mg/dL (8-22); CALCIUM 7.8 mg/dL (8.8-10.2); CHLORIDE 105 mmol/L (98-107); COSMO 277; CREATININE 0.7 mg/dL (0.5-0.9); ESTIMATED GFR > 60; GLUCOSE 106 mg/dL (70-104); GOT 41 U/L (10-30); GPT 27 U/L (10-36); POTASSIUM 3.4 mmol/L (3.5-5.1); SODIUM 140 mmol/L (136-145); TCO2 25 mmol/L (25-35); TOTAL BILIRUBIN < 0.15 mg/dL (0.20-1.00)
[2019-03-21] MEDS: CYMBALTA PO SCH (08:44)
[2019-03-21] MEDS: ICAR-C PO SCH (08:44)
[2019-03-21] MEDS: ALDACTONE PO SCH (08:44)
[2019-03-21] MEDS: CENTRUM SILVER PO SCH (08:44)
[2019-03-21] MEDS: LOVENOX SUBQ SCH (08:44)
[2019-03-21] MEDS: LOPRESSOR PO SCH (08:45)
[2019-03-21] MEDS: NS 1,000 ML IV SCH (08:55)
[2019-03-21] MEDS ORDERED: ESTRACE PO SCH (09:00)
[2019-03-21 11:42] LABS: HEPATITIS PROFILE ACUTE SEE COMMENTS
--- NOTE | 2019-03-21 16:41 | DISCHARGE SUMMARY ---
ADMISSION DATE: 03/19/2019 DISCHARGE DATE: 03/21/2019 DISCHARGE DIAGNOSES: 1. Altered mental status likely due to polypharmacy, most of them for [id number] medication. 2. History of back pain. MRI showed some disk bulges but no acute disease. 3. Hypertension. 4. Rhabdomyolysis, resolved. 5. Gastroesophageal reflux disease, on proton pump inhibitors. 6. Iron deficiency anemia. 7. Elevated D-dimer with a normal CT angiogram. 8. Polypharmacy. 9. As per the patient, history of fibromyalgia. PROCEDURES PERFORMED: Head CT scan dated 03/18/2019. Impression: No acute process. Pulmonary arteriogram dated 03/18/2019. Impression: Mild cardiomegaly but no visible acute disease. Brain MRI dated 02/26/2019. Impression: Mild chronic microvascular disease but no acute disease. Echocardiogram dated 03/19/2019. Enlarged left ventricle with preserved systolic function around 55 to 60% with atypical contractility of the septum, mildly to moderately enlarged left atrium, no significant valvular abnormality, pulmonary pressure estimated at 36 mmHg, no aortic stenosis, diastolic dysfunction cannot be properly evaluated. Abdomen ultrasound dated 03/19/2019. Impression: Negative exam. HOSPITAL COURSE: A 53-year-old female with past medical history of low back pain, GERD, hypertension, fibromyalgia presented to the emergency department and was admitted on 03/19/2019. She presented because of mental status changes and pain involving both lower extremities that has been chronic, but it has been getting worse for the past month. Also, she has a history of back pain for which she receives epidural steroid injections. She also states that she has been having numbness as well as tingling in her lower extremities, left greater than right. The patient was seen and evaluated in the ER. She was noted to be tachycardic. EKG showed left bundle branch block, and the patient was confused. Her D-dimer was slightly elevated at 0.79, so they did a CT angiogram that showed mild cardiomegaly but no visible acute disease, no pulmonary embolism. Because of the confusion, she had an MRI done and a lumbar spine MRI done as well. MRI showed mild disk bulges but no acute disease, and the brain MRI did not show any acute issues as well as the abdominal ultrasound. I evaluated this patient at the bedside, and the was at the bedside as well. I checked every medication from that patient, and I found in 1 bottle three different tablets, and the patient does not remember why she has different treatment in 1 bottle, so I do believe this patient has been taking medication, but she does not know exactly what she takes, and she has been confused. Also the laboratory showed a CK level of 1500. She was placed on fluids, and yesterday the CK level was around 675. Negative troponins. This patient today is feeling much better, Cardiology Department evaluated this patient, and they suggested to put this patient on beta blockers, which we did. The heart rate is still slightly elevated at 102, but compared with admission, it was in the 130s. I will continue with that. She wants to go home. Cardiology Department has been recommended to do probably a stress test tomorrow. I talked to the patient about it, and she said that she had a stress test done on November 19 of this year when she was in [place], and she states that they did not do anything because probably she does not have anything. I talked to her about repeating the test, but she wants to go home, and actually she said that she will follow up with Dr. Parker, who is our senior web developer, as an outpatient. I told the patient to stay away from medications that are not prescribed. She seems to understand. Hopefully, she will do that. PHYSICAL EXAMINATION: Vital signs: Temperature 97.5 degrees, pulse 102, respiratory rate 19, blood pressure 147/93. Oxygen saturation 96 on room air. HEENT: Head normocephalic, no trauma. PERRLA. Neck: Supple. No JVD. No masses. Central trachea. Chest: Clear to auscultation. No wheezing. No rales. Cardiovascular: RRR. Slightly tachycardic. Abdomen: Soft, nontender, nondistended. No hepatosplenomegaly. Extremities: No edema, no clubbing, no cyanosis. She does have some pain at the level of the knee caps. Neurological: The patient is alert. She is oriented x3. No focal neurological deficits at this moment. LABORATORY: WBC 7.4, hemoglobin 7.7, hematocrit 26.2, platelets 354,000. Sodium 140, potassium 3.4, chloride 105, bicarbonate 25, BUN 4, creatinine 0.7. Glucose 106, calcium 7.8. AST 41, ALT 27, alkaline phosphatase 103, bilirubin less than 0.15, albumin 3. DISCHARGE MEDICATIONS: 1. Cymbalta 60 mg p.o. daily. 2. Estradiol 2 mg p.o. daily. 3. Icar-C twice a day tablets. 4. Ketoralac 10 mg p.o. q.6 hours as needed. 5. Lisinopril 20 mg p.o. daily. 6. Metoprolol 12.5 mg p.o. b.i.d. 7. Centrum Silver 1 tablet p.o. daily. 8. Omeprazole 20 mg p.o. daily. 9. Ondansetron 4 mg p.o. q.8 hours as needed for nausea vomiting. 10. Spironolactone 25 mg p.o. daily. 11. Tramadol 50 mg p.o. q.6 hours as needed for pain. 12. Ambien 5 mg p.o. at bedtime as needed for insomnia. FOLLOWUP: Follow up with Dr. Parker in 2 weeks and follow up with her primary care doctor in 1 week. Again, I offered the patient to stay so we can do probably a stress test tomorrow, but she will go to our outpatient clinic and get it done. On the other hand, she had one done on November 19 in [place]. cc: Jeromy Chow MD
--- NOTE | 2019-03-22 12:13 | Extremity Venous Study ---
PROCEDURE NAME: Venous U/S Bilateral Legs - 03/18/2019 CONSULTING SENIOR PRACTICE DIRECTOR: Benjamin. REQUESTING PHYSICIAN: Dr. Turner. INDICATIONS: Leg pain and swelling. FINDINGS: Deep and superficial veins of the bilateral lower extremities were visualized along their course. All vessels are compressible with forward flow, and no evidence of intraluminal thrombus. SUMMARY: No deep or superficial venous thrombosis seen in bilateral lower extremities. cc: Joel Russell MD
== END 2019-03-21 11:49 | disposition home or self-care (01) | DRG 948 ==
LOC: ED 16:40 → 3N 03-19 02:05 → SUATTDRO 03-19 02:05
PROVIDERS: ATTEND Internal Medicine